=== PATIENT | male | born 1935 | race Caucasian/White ===

== ENCOUNTER 2017-08-24 14:17 | Emergency (ER) | payer MEDICARE, OTHER ==
[~2017-08-24] VITALS: Ht 167.6 cm; Wt 90.7 kg
[~2017-08-24 14:17] MED LIST: ASPI325 PO; CYAN100 PO; CYAN1000 PO; EZET10-40 PO; FOLI1 PO; GLYB5 PO; INSDET100 SQ; METF500 PO; NIAC500 PO; PARO20 PO; SIMV40 PO; Silvadene20 GM TOP; TAMS.4ER PO; [UNRECOGNIZED DRUG - REMARK]
[2017-08-24 14:34] LABS: PCO2 Arterial 40.5 mmHg (35-45); PO2 Arterial 52.1 mmHg (80-100); pH Blood Arterial 7.29 (7.35-7.45)
[2017-08-24 14:46] LABS: BASOPHILS ABSOLUTE AUTO 0.07 K/mm3 (0.00-0.23); BASOPHILS PERCENT AUTO 0 % (0-2); EOSINOPHILS ABSOLUTE AUTO 0.12 K/mm3 (0.00-0.68); EOSINOPHILS PERCENT AUTO 1 % (0-6); IMMATURE GRAN ABSOLUTE AUTO 0.22 K/mm3 (0.00-0.10); IMMATURE GRAN PERCENT AUTO 1 % (0-1); LYMPHOCYTES ABSOLUTE AUTO 2.99 K/mm3 (0.84-5.20); LYMPHOCYTES PERCENT AUTO 16 % (21-46); MONOCYTES ABSOLUTE AUTO 1.18 K/mm3 (0.16-1.47); MONOCYTES PERCENT AUTO 6 % (4-13); Mean Corpuscular HGB 31.4 pg (26.0-34.0); Mean Corpuscular HGB Conc 33.3 g/dL (31.5-36.5); Mean Corpuscular Volume 94 fL (80-100); Mean Platelet Volume 10.2 fL (9.1-12.4); NEUTROPHILS ABSOLUTE AUTO 14.26 K/mm3 (1.96-9.15); NEUTROPHILS PERCENT AUTO 76 % (41-73); NRBC ABSOLUTE 0.02 K/mm3 (0.00-0.02); NRBC Auto 0.1 /100 WBC (0.0-0.2); Platelet Count 239 K/mm3 (150-400); RDW Standard Deviation 47.9 fL (35.1-46.3); Red Blood Cell Count 4.14 M/mm3 (4.30-5.90); White Blood Cell Count 18.84 K/mm3 (4.00-11.30)
[2017-08-24 14:57] LABS: International Normalized Ratio 1.06
[2017-08-24 15:13] LABS: Alanine Aminotransfer (ALT/SGP 45 U/L (12-78); Albumin, Blood 3.4 g/dL (3.4-5.0); Albumin/Globulin Ratio 1.1 (0.8-1.8); Alk Phos 56 U/L (50-136); Anion Gap 12 mmol/L (6-16); Aspartate Aminotrans (AST/SGOT 60 U/L (12-37); Bilirubin, Total 0.4 mg/dL (0.1-1.0); Blood Urea Nitrogen 18 mg/dL (8-24); Bun/Creatinine Ratio 13.3 (12.0-20.0); CO2, Blood 23 mmol/L (21-32); Calcium, Blood 8.1 mg/dL (8.5-10.1); Chloride, Blood 106 mmol/L (98-108); Creatinine, Blood 1.35 mg/dL (0.60-1.20); Ethanol (Alcohol), Blood, Med <3 mg/dL; Globulin, Blood 3.2 g/dL (2.2-4.0); Glomerular Filtration Rate 54 (60-); Glucose, Blood 281 mg/dL (70-99); Potassium, Blood 3.2 mmol/L (3.5-5.5); Sodium, Blood 141 mmol/L (136-145); Total Protein, Blood 6.6 g/dL (6.4-8.2)
== END 2017-08-24 17:50 | disposition short-term general hospital (02) ==
LOC: ER 14:17
PROVIDERS: Emergency Medicine
DX: S42.111A Displaced fracture of body of scapula, right shoulder, initial encounter for closed fracture (principal); S27.2XXA Traumatic hemopneumothorax, initial encounter; S22.43XA Multiple fractures of ribs, bilateral, initial encounter for closed fracture; S32.019A Unspecified fracture of first lumbar vertebra, initial encounter for closed fracture; S32.029A Unspecified fracture of second lumbar vertebra, initial encounter for closed fracture; S32.039A Unspecified fracture of third lumbar vertebra, initial encounter for closed fracture; S32.049A Unspecified fracture of fourth lumbar vertebra, initial encounter for closed fracture; S22.049A Unspecified fracture of fourth thoracic vertebra, initial encounter for closed fracture; E87.2 Acidosis; R09.02 Hypoxemia; E11.9 Type 2 diabetes mellitus without complications; E78.5 Hyperlipidemia, unspecified; V86.69XA Passenger of other special all-terrain or other off-road motor vehicle injured in nontraffic accident, initial encounter
CPT/HCPCS: 32551; 36415; 36600; 51702; 70450; 70486; 71045; 71260; 72125; 74177; 80053; 82803; 83605; 83690; 85025; 85610; 85730; 93005; 93010; 96374; 96375; 99285; G0480; J0690; J3010; J7030; Q9967

== ENCOUNTER → 2021-12-23 | Outpatient (CLI) | payer MEDICARE, OTHER ==
[2021-12-23 10:27] LABS: Source, Urine Clean Catch
[2021-12-23 11:21] LABS: Appearance, Urine Clear (Clear); Bilirubin, Urine Neg (Neg); Blood, Urine Neg (Neg); Color, Urine Yellow (P-Yellow); Glucose Qualitative, Urine Neg (Neg); Ketones, Urine Neg (Neg); Leukocyte Esterase, Urine 1+ (Neg); Nitrite, Urine Neg (Neg); Protein, Urine Neg (Neg); Urobilinogen, Urine NORM (Normal)
[2021-12-23 11:46] LABS: Bacteria Rare /hpf; Red Blood Cells, Urine 0-2 /hpf (0-2); Squamous Epithelial Cells Rare /hpf (Few); White Blood Cells, Urine 0-2 /hpf (0-5)
== END | disposition home or self-care (01) ==
LOC: LAB SHORT 10:26 → LAB 10:26
DX: E78.5 Hyperlipidemia, unspecified (principal); E03.8 Other specified hypothyroidism; E55.9 Vitamin D deficiency, unspecified; N39.0 Urinary tract infection, site not specified; E11.9 Type 2 diabetes mellitus without complications; I10 Essential (primary) hypertension
CPT/HCPCS: 81001

== ENCOUNTER 2025-05-25 16:12 | Emergency (ER) | payer MEDICARE, OTHER ==
[~2025-05-25] VITALS: Ht 180.3 cm; Wt 97.1 kg
[2025-05-25] MEDS ORDERED: ATOR10 PO (16:30)
[2025-05-25] MEDS ORDERED: GLIP5 PO (16:31)
[2025-05-25] MEDS ORDERED: FentaNYL Citrate 50 MCG/ML 2 ML Injection IV ONE (17:25)
[2025-05-25] MEDS ORDERED: CeFAZolin Sodium 2,000 MG in NS 100 ML IV ONE (17:30)
[2025-05-25 17:46] LABS: BASOPHILS ABSOLUTE AUTO 0.03 K/mm3 (0.00-0.23); BASOPHILS PERCENT AUTO 0 % (0-2); EOSINOPHILS ABSOLUTE AUTO 0.20 K/mm3 (0.00-0.68); EOSINOPHILS PERCENT AUTO 2 % (0-6); Hematocrit 38.1 % (37.0-53.0); Hemoglobin 13.1 g/dL (13.5-17.5); IMMATURE GRAN ABSOLUTE AUTO 0.03 K/mm3 (0.00-0.10); IMMATURE GRAN PERCENT AUTO 0 % (0-1); LYMPHOCYTES ABSOLUTE AUTO 1.66 K/mm3 (0.84-5.20); LYMPHOCYTES PERCENT AUTO 18 % (21-46); MONOCYTES ABSOLUTE AUTO 0.65 K/mm3 (0.16-1.47); MONOCYTES PERCENT AUTO 7 % (4-13); Mean Corpuscular HGB Conc 34.4 g/dL (31.5-36.5); Mean Corpuscular Volume 93 fL (80-100); NEUTROPHILS ABSOLUTE AUTO 6.80 K/mm3 (1.96-9.15); NEUTROPHILS PERCENT AUTO 73 % (41-73); NRBC ABSOLUTE 0.00 K/mm3 (0.00-0.02); NRBC Auto 0.0 /100 WBC (0.0-0.2); Platelet Count 216 K/mm3 (150-400); RDW Coefficient Variation 12.8 % (11.7-14.2); RDW Standard Deviation 43.7 fL (35.1-46.3)
[2025-05-25 18:19] LABS: Alanine Aminotransfer (ALT/SGP 27.0 U/L (12-78); Albumin, Blood 3.7 g/dL (3.4-5.0); Albumin/Globulin Ratio 1.2 (0.8-1.8); Anion Gap 10.0 mmol/L (3-11); Aspartate Aminotrans (AST/SGOT 21.0 U/L (12-37); Bilirubin, Total 0.4 mg/dL (0.1-1.0); Blood Urea Nitrogen 29.0 mg/dL (8-24); CO2, Blood 22.0 mmol/L (21-32); Calcium, Blood 8.2 mg/dL (8.5-10.1); Chloride, Blood 108.0 mmol/L (98-108); Creatinine, Blood 1.29 mg/dL (0.60-1.20); Globulin, Blood 3.1 g/dL (2.2-4.0); Glucose, Blood 212.0 mg/dL (70-99); Potassium, Blood 4.5 mmol/L (3.5-5.5); Sodium, Blood 135.0 mmol/L (136-145); Total Protein, Blood 6.8 g/dL (6.4-8.2)
[2025-05-25] MEDS ORDERED: AMOX-CLAV 875-1 EAC2 PO (19:13)
[2025-05-25] MEDS ORDERED: RX Prepack 6 Tabs Oxycodone 5mg UD ONE (19:15)
[2025-05-25 19:50] VITALS: BP 159/94
[2025-05-28] MEDS ORDERED: Norco 5-325 Ta1 EACH PO (12:47)
== END 2025-05-25 19:55 | disposition home or self-care (01) ==
LOC: ER 16:12
PROVIDERS: Physician Assistant
DX: S62.310B Displaced fracture of base of second metacarpal bone, right hand, initial encounter for open fracture (principal); E11.9 Type 2 diabetes mellitus without complications; Z79.899 Other long term (current) drug therapy; Z59.89 Other problems related to housing and economic circumstances
CPT/HCPCS: 12004; 73130; 80053; 85025; 96365-59; 96375-59; 99284-25; A9270; J0690; J3010

== ENCOUNTER 2025-05-30 11:38 | Day surgery (SDC) | payer MEDICARE, OTHER ==
[~2025-05-30] VITALS: Ht 180.3 cm; Wt 96.5 kg
[2025-05-30] VITALS (12 sets, daily range): BP systolic 133–167; BP diastolic 66–85
[~2025-05-30 11:38] MED LIST changes: +AMOX-CLAV 875-1 EAC2 PO; +ATOR10 PO; +CeFAZolin Sodium 2,000 MG in NS 100 ML IV SCH; +GLIP5 PO; +Norco 5-325 Ta1 EACH PO
[2025-05-30] MEDS ORDERED: Lidocaine HCL 1% 10 ML MDV ONE (12:22)
[2025-05-30] MEDS ORDERED: Bupivacaine HCl 2.5 MG/ML 10ML P/F Injection ONE (12:23)
[2025-05-30] MEDS ORDERED: Dexamethasone Sod Phos 10 MG/ML 1ML VIAL ONE (13:01)
[2025-05-30] MEDS ORDERED: Ondansetron HCl 2 MG / ML 2ML Vial ONE (13:01)
[2025-05-30] MEDS ORDERED: CeFAZolin Sodium 1000 mg Vial ONE (13:01)
[2025-05-30] MEDS ORDERED: FentaNYL Citrate 50 MCG/ML 2 ML Injection ONE (13:06)
[2025-05-30] MEDS ORDERED: Ondansetron HCl 2 MG / ML 2ML Vial IV PRN (14:50)
[2025-05-30] MEDS ORDERED: FentaNYL Citrate 50 MCG/ML 2 ML Injection IV PRN ×2 (14:50→14:55)
[2025-05-30] MEDS ORDERED: HYDROmorphone HCl/Pf 1MG SYR IV PRN ×2 (14:50→14:55)
[2025-05-30] MEDS ORDERED: HYDROcodone 5-APAP 325 TAB PO PRN (16:00)
[2025-05-30] MEDS ORDERED: OxyCODONE 10/Acetamin 325 TABLET PO ONE (17:05)
[2025-05-30] MEDS ORDERED: OxyCODONE 5 mg/Acetamin 325 mg TABLET PO ONE (17:15)
--- NOTE | 2025-05-30 18:49 | NUR ---
i WAS WALKING THE PATIENT TO HIS RIDE I NOTICED THE PATIENT TALKING SOMEWHAT NON-SENSICALLY, WHEN WE GOT TO HIS RIDE I SPOKE WITH HIS SON AND HE SIAD THAT HE WAS WORRIED THAT HIS DAD WAS STILL OUT OF IT, i TOOK THE PATIENT BACK TO DAY SURGERY AND WE CALLED THE MD AND THE DECISION WAS MADE TO ADMIT THE PATIENT FOR PAIN CONTROL AND TO WAKE UP BETTER FROM ANESTHESIA REPORT GIVEN TO FLOOR R\N i HAVE GIVEN MORCO 5MG AND 10MG PERCOCET FOR PAIN DURING THE PATIENT STAY
--- NOTE | 2025-05-30 18:54 | NUR ---
POST OP PT ARRIVAL TO UNIT AT APPROX 1845. SBA FROM W/C TO BED. S/P RIGHT ORIF INDEX FINGER. R ARM IN SLING AND ELEVATED ON PILLOW. TERESE WRAP APPEARS CDI. ICE PACK TO UPPER ARM. PT ABLE TO WIGGLE FINGERS, CAP REFILL <3 SECONDS, REPORTS MILD N/T. PT REPORTS 10/10 PAIN. POST OP VSS AND IN PROGRESS. 2L O2 VIA NC PLACED FOR DESATTING TO 88-89% WHILE ASLEEP. JUN SMALL AMOUNT OF PO AND SIPS OF WATER. ORIENTED TO CALL LIGHT AND TREATMENT PLAN. SON AT BEDSIDE FOR SUPPORT.
[2025-05-30] MEDS ORDERED: CeFAZolin Sodium 2,000 MG in NS 100 ML IV SCH (21:30)
[2025-05-31] VITALS: BP 143/91
[2025-05-31 04:40] VITALS: BP 116/68
--- NOTE | 2025-05-31 05:49 | NUR ---
SHIFT SUMMARY PT S/P R ORIF. PT PAIN HAS HAD MINIMAL PAIN OVERNIGHT, MANAGED WITH OXYCODONE. SURGICAL SITE WNL. DRESSING INTACT ARM IN SLING. PT DENIES N/T. IV ANTIBIOTICS PER ORDERS. PT VOIDING. TOLERATING PO INTAKE. POST OP VITALS STBALE. PLAN IS FOR DISCHARGE TODAY. BED IN LOWEST POSITION, CALL LIGHT WITHIN REACH.
[2025-05-31] MEDS ORDERED: Insulin Regular 100 UNIT/ML 10ML Vial SC SCH (07:30)
[2025-05-31 07:35] VITALS: BP 143/79
--- NOTE | 2025-05-31 11:44 | NUR ---
assumed care of pt @0700 axo4. vss. r hand splint cdi - cap refill <3sec. pain controlled per emar. pt voiding. arm in sling. moving fingers well. pt tolerated breakfast well. with son in room, pt provided dc instructions from day surgery - dr sotomayor approved discharge post assessing pot. instructions provided to pt and son in room with day surgery instruction sheet. out of room and dc'd @[id number].
== END 2025-05-31 11:30 | disposition home or self-care (01) ==
LOC: ORSCMMR 11:38 → ORD 12:30 → ORSCMMR 12:30 → SURS 18:31 → ORSCMMR 05-31 11:30
PROVIDERS: Orthopaedic Surgery
PROC: 0MQ70ZZ Repair Right Hand Bursa and Ligament, Open Approach (ICD-10-PCS; principal; 2025-05-30 12:30)
PROC: 0PSP04Z Reposition Right Metacarpal with Internal Fixation Device, Open Approach (ICD-10-PCS; principal; 2025-05-30 12:30)
DX: S62.310B Displaced fracture of base of second metacarpal bone, right hand, initial encounter for open fracture (principal); S69.91XA Unspecified injury of right wrist, hand and finger(s), initial encounter; S63.8X1A Sprain of other part of right wrist and hand, initial encounter; W31.2XXA Contact with powered woodworking and forming machines, initial encounter; E11.9 Type 2 diabetes mellitus without complications; E78.5 Hyperlipidemia, unspecified; Z79.84 Long term (current) use of oral hypoglycemic drugs; Z79.899 Other long term (current) drug therapy
CPT/HCPCS: 82947; A9270; C1713; J0690; J1100; J1815; J2003; J2405; J2704; J3010; J7120